=== PATIENT | female | born 1985 | race Asian ===

== ENCOUNTER 2019-07-13 03:50 | Inpatient (IN) | payer BC ==
[~2019-07-13] VITALS: Ht 157.5 cm; Wt 84.4 kg
[2019-07-13] MEDS ORDERED: MISOPROSTOL 100MCG TABLET VG SCH (05:00)
[2019-07-13] MEDS ORDERED: NALOXONE HCL 0.4 MG/ML 1ML VIAL IM PRN (05:00)
[2019-07-13] MEDS ORDERED: CARBOPROST TROMETHAMINE 250 MCG/ML AMPUL IM PRN (05:00)
[2019-07-13] MEDS ORDERED: METHYLERGONOVINE MALEATE 0.2 MG/ML IM PRN ×2 (05:00→20:15)
[2019-07-13] MEDS ORDERED: LIDOCAINE HCL 1% 20ML VIAL (Pyxis) INJ INFIL SCH (05:00)
[2019-07-13] MEDS ORDERED: BUTORPHANOL TARTRATE 2 MG/ML VIAL IV PRN (05:00)
[2019-07-13] MEDS ORDERED: OXYTOCIN 20 UNITS in LACTATED RINGERS 1,000 ML IV SCH (05:15)
[2019-07-13] MEDS: LACTATED RINGERS 1,000 ML IV SCH ×2 (05:29→20:20)
[2019-07-13] MEDS ORDERED: PENICILLIN G POTASSIUM 5 MMU in DEXT 5% WATER 100 ML IV SCH (05:30)
[2019-07-13] MEDS: MAGNESIUM 20 G PREMIX (L & D) 500 ML IV SCH ×2 (05:53→14:23)
[2019-07-13] MEDS ORDERED: LABETALOL HCL 20MG/4ML CARPUJECT IV SCH (06:00)
[2019-07-13 06:40] LABS: CLARITY URINE CLOUDY (CLEAR); COLOR URINE YELLOW (YELLOW); KETONES URINE 1+ (NEGATIVE); LEUKOCYTE ESTERASE URINE NEGATIVE (NEGATIVE); NITRITE URINE NEGATIVE (NEGATIVE); OCCULT BLOOD URINE 2+ (NEGATIVE); PROTEIN URINE 2+ (NEGATIVE); SPECIFIC GRAVITY URINE 1.018 (1.005-1.030)
[2019-07-13 06:45] LABS: CHLORIDE 106 mEq/L (98-107)
[2019-07-13 06:47] LABS: HEMATOCRIT. 37.5 % (36.0-48.0); HEMOGLOBIN. 12.6 g/dL (12.0-16.0); MEAN CORPUSCULAR HEMOGLOBIN 28.9 pg (28.0-32.0); MEAN CORPUSCULAR VOLUME 86.4 fL (81.0-99.0); MEAN PLATELET VOLUME 8.7 fl (7.4-10.4); PLATELET 260 x1000/uL (130-400); RED BLOOD CELL COUNT 4.34 mill/uL (4.2-5.4); RED CELL DISTRIBUTION WIDTH 14.4 % (11.6-14.6)
[2019-07-13 06:56] LABS: D-DIMER 1.71 mg/L FEU (<0.50); INR 0.9; PARTIAL THROMBOPLASTIN TIME 28.5 sec (23.4-31.0); PROTHROMBIN TIME 9.3 sec (9.6-11.0)
[2019-07-13 06:57] LABS: *AMPHETAMINES SCREEN URINE NEGATIVE (NEGATIVE); *BARBITURATES SCREEN URINE NEGATIVE (NEGATIVE); *BENZODIAZEPINES SCREEN URINE NEGATIVE (NEGATIVE); *COCAINE SCREEN URINE NEGATIVE (NEGATIVE)
[2019-07-13 06:58] LABS: METHADONE URINE SCREEN NEGATIVE (NEGATIVE); OPIATES URINE SCREEN NEGATIVE (NEGATIVE); PHENCYCLIDINE URINE SCREEN NEGATIVE (NEGATIVE)
[2019-07-13 06:59] LABS: CANNABINOID URINE SCREEN NEGATIVE (NEGATIVE)
[2019-07-13 07:58] LABS: PLATELET ESTIMATE NORMAL
[2019-07-13 08:15] LABS: HEPATITIS B SURFACE ANTIGEN NEGATIVE
[2019-07-13] MEDS ORDERED: ROPIVACAINE HCL/PF EPIDURAL 200 ML EPI SCH (08:15)
[2019-07-13] MEDS ORDERED: ONDANSETRON HCL 4MG/2ML INJ IV PRN (09:45)
[2019-07-13] MEDS: PENICILLIN G POTASSIUM 2.5 MMU in DEXTROSE 5% WATER 50 ML IV SCH ×2 (10:00→14:34)
[2019-07-13] MEDS ORDERED: LABETALOL HCL 100MG TABLET PO SCH (12:30)
[2019-07-13] MEDS: OXYTOCIN 20 UNITS in LACTATED RINGERS 1,000 ML IV SCH ×2 (12:30→22:33)
[2019-07-13] MEDS ORDERED: METFORMIN HCL 500MG TABLET PO SCH (17:00)
[2019-07-13] MEDS ORDERED: MINERAL OIL 30ML BOTTLE PO ONE (19:15)
[2019-07-13] MEDS ORDERED: LANOLIN OINT 7GM TUBE TOP PRN (20:00)
[2019-07-13] MEDS ORDERED: LABETALOL HCL 100MG TABLET PO ONE (20:00)
[2019-07-13] MEDS ORDERED: DEXT 5%/LR + PITOCIN 20UNITS/L 1,000 ML IV SCH (20:00)
[2019-07-13] MEDS ORDERED: GLYCERIN/WITCH HAZEL LEAF MEDICATED PAD TOP PRN (20:00)
[2019-07-13] MEDS ORDERED: DOCUSATE SODIUM 100MG CAPSULE PO SCH (21:00)
[2019-07-13] MEDS ORDERED: METFORMIN HCL 500MG TABLET PO NR (21:00)
[2019-07-14] VITALS (10 sets, daily range): BP systolic 110–143; BP diastolic 70–85
[2019-07-14] MEDS: BENZOCAINE/LANOLIN/ALOE VERA SPRAY TOP PRN (01:27)
[2019-07-14] MEDS: MAGNESIUM 20 G PREMIX (L & D) 500 ML IV SCH (01:29)
[2019-07-14] MEDS: IBUPROFEN 400MG TABLET PO PRN ×4 (01:34→21:18)
[2019-07-14 06:48] LABS: BASOPHILS % 0.2 % (0.0-2.0); EOSINOPHILS % 0.1 % (0.0-5.0); HEMATOCRIT. 31.1 % (36.0-48.0); HEMOGLOBIN. 10.4 g/dL (12.0-16.0); MEAN CORPUSCULAR HEMOGLOBIN 28.9 pg (28.0-32.0); MEAN CORPUSCULAR VOLUME 86.4 fL (81.0-99.0); MEAN PLATELET VOLUME 8.5 fl (7.4-10.4); MONOCYTES % 5.9 % (2.0-8.0); NEUTROPHILS % 85.8 % (40.0-76.0); PLATELET 247 x1000/uL (130-400); RED CELL DISTRIBUTION WIDTH 14.6 % (11.6-14.6)
[2019-07-14] MEDS ORDERED: METFORMIN HCL 500MG TABLET PO SCH (07:30)
[2019-07-14] MEDS: FERROUS SULFATE 325MG TABLET PO SCH (09:30)
[2019-07-14] MEDS: PRENATAL VIT/FE FUMARATE/FA TABLET PO SCH (09:30)
[2019-07-15 05:00] VITALS: BP 128/87
[2019-07-15] MEDS: BENZOCAINE/LANOLIN/ALOE VERA SPRAY TOP PRN (05:15)
[2019-07-15 07:30] VITALS: BP 112/62
[2019-07-15] MEDS: PRENATAL VIT/FE FUMARATE/FA TABLET PO SCH (08:33)
[2019-07-15] MEDS: FERROUS SULFATE 325MG TABLET PO SCH (08:33)
[2019-07-15] MEDS: IBUPROFEN 400MG TABLET PO PRN (08:34)
[2019-07-15] MEDS ORDERED: TETANUS, DIPHTHERIA, PERTUSSIS VAC/PF 0.5ML (>7YR OLD) IM ONE (15:00)
== END 2019-07-15 14:15 | disposition home or self-care (01) | DRG 807 ==
LOC: OBSVTOIN 03:50 → 8 EST LDRP 03:50 → 8EST 23:50
PROVIDERS: ADMIT Obstetrics & Gynecology Obstetrics; ATTEND Obstetrics & Gynecology Obstetrics
PROC: 10E0XZZ Delivery of Products of Conception, External Approach (ICD-10-PCS; principal; 2019-07-13)
PROC: 3E0R3BZ Introduction of Anesthetic Agent into Spinal Canal, Percutaneous Approach (ICD-10-PCS; 2019-07-13)
PROC: 00HU33Z Insertion of Infusion Device into Spinal Canal, Percutaneous Approach (ICD-10-PCS; 2019-07-13)
DX: O16.4 Unspecified maternal hypertension, complicating childbirth (principal); Z37.0 Single live birth; O69.81X0 Labor and delivery complicated by cord around neck, without compression, not applicable or unspecified; Z3A.35 35 weeks gestation of pregnancy; O24.425 Gestational diabetes mellitus in childbirth, controlled by oral hypoglycemic drugs; Z79.84 Long term (current) use of oral hypoglycemic drugs; O70.1 Second degree perineal laceration during delivery; O42.913 Preterm premature rupture of membranes, unspecified as to length of time between rupture and onset of labor, third trimester
CPT/HCPCS: 36415; 80305; 81003; 83735; 84550; 85379; 85384; 86592; 86703; 86762; 86850; 86900; 87340; 90715; G0378; J2210; J2405; J2540; J2795; J3475; J3490; J7060; J7120; A4315